=== PATIENT | female | born 1955 | race Hispanic/Latino ===

== ENCOUNTER 2017-10-15 18:19 | Observation (INO) | payer BC, OTHER ==
[~2017-10-15] VITALS: Ht 162.6 cm; Wt 72.6 kg
[~2017-10-15 18:19] MED LIST: LEVOTHYROXINE50 MCG PO; MOTRIN800 MG PO
[2017-10-15] MEDS ORDERED: ASPIRIN 81 MG CHEW TAB PO ONE (20:00)
[2017-10-15] MEDS ORDERED: ASPIRIN 325 MG TAB PO ONE (20:00)
[2017-10-15 20:15] LABS: BASOPHILS # (AUTO) 0.1 (0.0-0.1); BASOPHILS % 1.3 % (0.0-1.0); EOSINOPHILS # (AUTO) 0.4 (0.0-0.4); EOSINOPHILS % 5.8 % (0.0-6.0); HEMATOCRIT 41.9 % (34.2-44.1); HEMOGLOBIN 14.4 g/dL (12.0-16.0); LYMPHOCYTES # (AUTO) 3.5 (1.0-3.2); LYMPHOCYTES % 48.3 % (18.0-39.1); MEAN CORPUSCULAR HGB CONC 34.4 g/dL (31-35); MEAN CORPUSCULAR VOLUME 84.3 fL (81-99); MONOCYTES # (AUTO) 0.5 (0.2-0.8); MONOCYTES % 7.2 % (4.4-11.3); NEUTROPHILS # (AUTO) 2.7 (2.1-6.9); NEUTROPHILS % 37.3 % (38.7-80.0); PLATELET COUNT 264 x10e3/uL (140-360); RED BLOOD COUNT 4.97 x10e6/uL (3.6-5.1); RED CELL DISTRIBUTION WIDTH 12.3 % (11.7-14.4)
[2017-10-15 20:27] LABS: ALANINE AMINOTRANSFERASE 31 IU/L (0-55); ALKALINE PHOSPHATASE 92 IU/L (40-150); ANION GAP 16.3 mmol/L (8-16); BLOOD UREA NITROGEN 19 mg/dL (7-26); BUN/CREATININE RATIO 18 (6-25); CALCIUM 9.8 mg/dL (8.4-10.2); CARBON DIOXIDE 25 mmol/L (22-29); CHLORIDE 100 mmol/L (98-107); CREATINE KINASE 234 IU/L (29-168); CREATININE, SERUM 1.05 mg/dL (0.57-1.11); EST GLOMERULAR FILTRATION RATE 53 ML/MIN (60-); GLUCOSE 174 mg/dL (74-118); POTASSIUM 4.3 mmol/L (3.5-5.1); SODIUM 137 mmol/L (136-145)
--- NOTE | 2017-10-15 21:52 | Diagnostic Imaging Report ---
EXAMINATION: CHEST SINGLE (NOT PORTABLE) INDICATION: Hepatic, chest pressure COMPARISON: None FINDINGS: TUBES and LINES: None. LUNGS: Lungs are not well inflated. There are bibasilar atelectasis. There is no evidence of pneumonia or pulmonary edema. PLEURA: No pleural effusion or pneumothorax. HEART AND MEDIASTINUM: The cardiomediastinal silhouette is unremarkable. BONES AND SOFT TISSUES: No acute osseous lesion. Postsurgical changes in the right shoulder compatible with prior rotator cuff repair. Additional metallic densities overlying the acromiohumeral joint are indeterminate. Soft tissues are unremarkable. UPPER ABDOMEN: No free air under the diaphragm. IMPRESSION: No acute thoracic abnormality. Signed by: Dr. Jose Elias M.D. on 10/15/2017 9:49 PM
--- NOTE | 2017-10-15 22:33 | Diagnostic Imaging Report ---
EXAMINATION: Head CT without contrast. HISTORY:Headache and dizziness. COMPARISON:CT brain from 06/14/2014. TECHNIQUE: Multidetector axial images were obtained from the foramen magnum to the vertex without contrast. The images were reconstructed using brain and bone algorithms. Thin section brain images were reformatted into coronal and sagittal planes. Intravenous contrast: None IMAGE QUALITY: Acceptable. FINDINGS: Skull/scalp: No abnormality. Parenchyma: No abnormal density. No acute hemorrhage, mass or acute major vascular territorial infarct. Arteries: Nonspecific asymmetric hyperdense appearance of right vertebral artery (image 4, series 2). Dural sinuses: No abnormal density suggestive of thrombosis. Ventricles: No hydrocephalus or displacement. Extra-axial spaces: No abnormal density. Brain volume: Normal for age. Craniocervical junction: No mass, Chiari malformation, or basilar invagination. Sella: No mass. Paranasal/mastoid sinuses: Imaged portions unremarkable. IMPRESSION: No acute intracranial abnormality, particularly no acute hemorrhage, mass or acute major vascular territorial infarct. Nonspecific asymmetric hyperdense appearance of right vertebral artery the differential possibility includes vertebral artery thrombus, tortuous vessel or an artifact. If there is clinical concern follow-up with CTA of the head/neck for further evaluation. Findings were discussed with Nurse Padgett by phone at 10:25 PM on 10/15/2017. Signed by: Dr. Linda Jacobs M.D. on 10/15/2017 10:30 PM
[2017-10-15] MEDS ORDERED: SODIUM CHLORIDE 0.9% 500ML 500 ML IV ONE ×2 (22:45)
--- NOTE | 2017-10-16 01:01 | Diagnostic Imaging Report ---
EXAMINATION: CT angio of the neck and head with contrast. HISTORY:Headache and dizziness. COMPARISON:No direct comparison, compared with CT brain from 10/15/2017. TECHNIQUE: Multidetector helical axial images were acquired through the neck and head during infusion of iodinated contrast material. Images were reviewed in multiplanar and 3-dimensional format. Contrast: 100 mL of Isovue-370 . FINDINGS: NECK: If carotid bulb stenosis is present, stenosis is measured with respect to the distal extracranial internal carotid artery. AORTIC ARCH: Common origin of right brachiocephalic trunk and left common carotid artery. Direct origin of left vertebral artery from the aortic arch Common carotid arteries: Patent, no abnormality Cervical carotid bulb: Right: Punctate nonstenotic hard atherosclerotic plaque. Left :Nonstenotic mixed focal atherosclerotic plaque. Internal carotid arteries: Right: Patent. Left: Nonstenotic focal hard atherosclerotic plaque in the proximal left internal carotid artery just above the bifurcation. Vertebral arteries: Patent, no abnormality. HEAD: Internal carotid arteries: Mild atherosclerotic plaque in bilateral carotid siphon, otherwise patent, no abnormality in bilateral M1 and A1 segments. Vertebral arteries: Tortuous course of dominant right vertebral artery. Basilar artery: Patent. Posterior cerebral arteries: Patent. Anatomical variants: Anterior communicating artery :Present Posterior communicating arteries: Patent on right, not well visualized on left. Vertebral arteries: Dominant right. IMPRESSION: 1. Tortuous course of V4 segment of dominant right vertebral artery. No vertebral artery thrombus. 2. Mild atherosclerotic plaque in bilateral carotid siphon. Nonstenotic focal atherosclerotic plaque in bilateral carotid bulb and proximal left internal carotid artery. Signed by: Dr. Linda Jacobs M.D. on 10/16/2017 12:58 AM
[2017-10-16] MEDS ORDERED: KETOROLAC TROMETHAMINE 30 MG/ML VIAL IV STA (01:34)
[2017-10-16] MEDS ORDERED: ASPIRIN 81 MG CHEW TAB ONE (02:00)
[2017-10-16] MEDS ORDERED: MORPHINE SULFATE 2 MG/ML SYR IV PRN (02:30)
[2017-10-16] MEDS ORDERED: DEXTROSE 50% SYRINGE 50 ML IV PRN (02:30)
[2017-10-16] MEDS ORDERED: ONDANSETRON HCL INJ 2 MG/ML VIAL IV PRN (02:30)
[2017-10-16] MEDS ORDERED: NITROGLYCERIN 0.4 MG SUBL SL PRN (02:30)
--- OUTSIDE RECORDS SUMMARY | 2017-10-16 02:36 | XMS REPORT ---
[facility] Address Unknown Phone Unavailable Care Team Providers Care Distribution Associate Name Role Phone ZACHARY ANTHONY Unavailable Unavailable Problems This patient has no known problems. Allergies, Adverse Reactions, Alerts This patient has no known allergies or adverse reactions. Medications This patient has no known medications. Results Test Description Test Time Test Comments Text Results Atomic Results Result Comments CTA BRAIN [place] [id number] Patient Name: JOHN HO MR # : [id number] : 1955 Age/Sex: 62/F Req #: [id number] Adm Physician: Ordered by: ZACHARY ANTHONY MD Report #: [id number] Location: ER Room/Bed: Procedure: [id number] CT/ CTA BRAIN Exam Date: 10/15/17 Exam Time: 2351 REPORT STATUS: Signed EXAMINATION: CT angio of the neck and head with contrast. HISTORY:Headache and dizziness. COMPARISON:No direct comparison, compared with CT brain from 10/15/2017. TECHNIQUE: Multidetector helical axial images were acquired through the neck and head during infusion of iodinated contrast material. Images were reviewed in multiplanar and 3-dimensional format. Contrast: 100 mL of Isovue-370 . FINDINGS: NECK: If carotid bulb stenosis is present, stenosis is measured with respect to the distal extracranial internal carotid artery. AORTIC ARCH: Common origin of right brachiocephalic trunk and left common carotid artery. Direct origin of left vertebral artery from the aortic arch Common carotid arteries: Patent, no abnormality Cervical carotid bulb : Right: Punctate nonstenotic hard atherosclerotic plaque. Left : Nonstenotic mixed focal atherosclerotic plaque. Internal carotid arteries: Right: Patent. Left: Nonstenotic focal hard atherosclerotic plaque in the proximal left internal carotid artery just above the bifurcation. Vertebral arteries: Patent, no abnormality. HEAD: Internal carotid arteries: Mild atherosclerotic plaque in bilateral carotid siphon, otherwise patent, no abnormality in bilateral M1 and A1 segments. Vertebral arteries: Tortuous course of dominant right vertebral artery. Basilar artery: Patent. Posterior cerebral arteries: Patent. Anatomical variants: Anterior communicating artery :Present Posterior communicating arteries: Patent on right, not well visualized on left. Vertebral arteries: Dominant right. IMPRESSION: 1. Tortuous course of V4 segment of dominant right vertebral artery. No vertebral artery thrombus. 2. Mild atherosclerotic plaque in bilateral carotid siphon. Nonstenotic focal atherosclerotic plaque in bilateral carotid bulb and proximal left internal carotid artery. Signed by: Dr. Linda Jacobs M.D. on 10/16/2017 12:58 AM Dictated By: LINDA JACOBS MD Transcribed By: LIN on 10/16/1757 COPY TO: ZACHARY ANTHONY MD CT BRAIN WO [place] [address] Patient Name: JOHN HO MR #: [id number] : 1955 Age/Sex: 62/F Req #: [id number] Adm Physician: Ordered by: ZACHARY ANTHONY MD Report #: [id number] Location: Room/Bed: Procedure: [id number] CT/CT BRAIN WO Exam Date: 10/15/17 Exam Time: 2144 REPORT STATUS: Signed EXAMINATION: Head CT without contrast. HISTORY:Headache and dizziness. COMPARISON:CT brain from 06/14/2014. TECHNIQUE: Multidetector axial images were obtained from the foramen magnum to the vertex without contrast. The images were reconstructed using brain and bone algorithms. Thin section brain images were reformatted into coronal and sagittal planes. Intravenous contrast: None IMAGE QUALITY: Acceptable. FINDINGS: Skull/scalp: No abnormality. Parenchyma: No abnormal density. No acute hemorrhage, mass or acute major vascular territorial infarct. Arteries: Nonspecific asymmetric hyperdense appearance of right vertebral artery (image 4, series 2) . Dural sinuses: No abnormal density suggestive of thrombosis. Ventricles: No hydrocephalus or displacement. Extra-axial spaces: No abnormal density. Brain volume: Normal for age. Craniocervical junction: No mass, Chiari malformation, or basilar invagination. Sella: No mass. Paranasal/mastoid sinuses: Imaged portions unremarkable. IMPRESSION: No acute intracranial abnormality, particularly no acute hemorrhage, mass or acute major vascular territorial infarct. Nonspecific asymmetric hyperdense appearance of right vertebral artery the differential possibility includes vertebral artery thrombus, tortuous vessel or an artifact. If there is clinical concern follow-up with CTA of the head/ neck for further evaluation. Findings were discussed with Nurse Padgett by phone at 10:25 PM on 10/15/2017. Signed by: Dr. Linda Jacobs M.D. on 10:30 PM Dictated By: LINDA JACOBS MD 29 Transcribed By: LIN on 10/15/172229 COPY TO: ZACHARY ANTHONY MD CHEST SINGLE (NOT PORTABLE) [place] [address] Patient Name: JOHN HO MR #: [id number] : 1955 Age/Sex: 62/F Req #: [id number] Adm Physician: Ordered by: NEO SALAS LOAN REPRESENTATIVE Report #: [id number] Location: ER Room/Bed: Procedure: [id number] DX/CHEST SINGLE (NOT PORTABLE) Exam Date: 10/15/17 Exam Time: 2028 REPORT STATUS: Signed EXAMINATION : CHEST SINGLE (NOT PORTABLE) INDICATION: Hepatic, chest pressure COMPARISON: None FINDINGS: TUBES and LINES: None. LUNGS: Lungs are not well inflated. There are bibasilar atelectasis. There is no evidence of pneumonia or pulmonary edema. PLEURA: No pleural effusion or pneumothorax. HEART AND MEDIASTINUM: The cardiomediastinal silhouette is unremarkable. BONES AND SOFT TISSUES: No acute osseous lesion. Postsurgical changes in the right shoulder compatible with prior rotator cuff repair. Additional metallic densities overlying the acromiohumeral joint are indeterminate. Soft tissues are unremarkable. UPPER ABDOMEN: No free air under the diaphragm. IMPRESSION: No acute thoracic abnormality. Signed by: Dr. Jose Elias M.D. on 10/15/2017 9:49 PM Dictated By: JOSE RODRIGUEZ MD 48 Transcribed By: LIN on 10/15/172148 COPY TO: NEO SALAS LOAN REPRESENTATIVE CTA NECK [place] [address] Patient Name: JOHN HO MR # : [id number] : 1955 Age/Sex: 62/F Req #: [id number] Adm Physician: Ordered by: ZACHARY ANTHONY MD Report #: [id number] Location: ER Room/Bed: Procedure: [id number] CT/ CTA NECK Exam Date: 10/15/17 Exam Time: 2351 REPORT STATUS: Signed EXAMINATION: CT angio of the neck and head with contrast. HISTORY:Headache and dizziness. COMPARISON:No direct comparison, compared with CT brain from 10/15/2017. TECHNIQUE: Multidetector helical axial images were acquired through the neck and head during infusion of iodinated contrast material. Images were reviewed in multiplanar and 3-dimensional format. Contrast: 100 mL of Isovue-370 . FINDINGS: NECK: If carotid bulb stenosis is present, stenosis is measured with respect to the distal extracranial internal carotid artery. AORTIC ARCH: Common origin of right brachiocephalic trunk and left common carotid artery. Direct origin of left vertebral artery from the aortic arch Common carotid arteries: Patent, no abnormality Cervical carotid bulb : Right: Punctate nonstenotic hard atherosclerotic plaque. Left : Nonstenotic mixed focal atherosclerotic plaque. Internal carotid arteries: Right: Patent. Left: Nonstenotic focal hard atherosclerotic plaque in the proximal left internal carotid artery just above the bifurcation. Vertebral arteries: Patent, no abnormality. HEAD: Internal carotid arteries: Mild atherosclerotic plaque in bilateral carotid siphon, otherwise patent, no abnormality in bilateral M1 and A1 segments. Vertebral arteries: Tortuous course of dominant right vertebral artery. Basilar artery: Patent. Posterior cerebral arteries: Patent. Anatomical variants: Anterior communicating artery :Present Posterior communicating arteries: Patent on right, not well visualized on left. Vertebral arteries: Dominant right.
[2017-10-16 04:22] LABS: CREATINE KINASE MB 3.2 ng/mL (0-5.0)
[2017-10-16] MEDS ORDERED: SODIUM CHLORIDE 0.9% 50ML 50 ML ONE (05:19)
[2017-10-16] MEDS ORDERED: IOPAMIDOL 370 MG/ML 200 ML INFUS..BTL INJ ONE (05:20)
[2017-10-16] MEDS: INSULIN REGULAR, HUMAN 100 UNIT/1 ML 3ML VIAL SQ SCH ×2 (07:00→12:39)
[2017-10-16] MEDS ORDERED: ASPIRIN 81 MG ENTERIC COATED PO SCH (09:00)
[2017-10-16 13:06] LABS: CREATINE KINASE MB 2.5 ng/mL (0-5.0)
[2017-10-16 13:14] VITALS: BP 130/16
[2017-10-16] MEDS ORDERED: IBUPROFEN 600 MG PO PRN (13:15)
--- NOTE | 2017-10-16 13:29 | Consultation ---
DATE OF CONSULTATION: October 16, 2017 CARDIAC CONSULTATION REASON FOR CONSULTATION: Chest pain. HISTORY: A 62-year-old lady who is known with hypertension, diabetes mellitus, hypothyroidism. Her diabetes is 3 years ago. It is controlled with metformin. She take another tablet for cholesterol, and she takes Synthroid. Regardless, the reason for her presentation to this institution was severe headache involving half of the head. The pain is very severe. With this severe headache, patient complained of vague chest pain. Cardiac consultation is obtained. I visited with the patient and still having severe headache. She denied having any prior angina. Her chest pain is more of not feeling well because of her headache. She denied having any typical anginal chest pain, or any other type of chest pain can be put together. It is just dullness feeling. REVIEW OF SYSTEMS: HEENT: No vision problem. Has severe headache as described above. PULMONARY: No cough. No hemoptysis. CARDIAC: No angina. No orthopnea. No paroxysmal nocturnal dyspnea. GI: No hematemesis. No melena. : No hematuria. No dysuria. NEUROMUSCULAR: Only the headache. OTHERS: No major complaint in the rest of her systems. HOME MEDICATIONS: Metformin. Cholesterol tablet, she cannot recall the name. Hypothyroidism. ALLERGIES: NONE. PAST MEDICAL HISTORY: 1. Hypertension. 2. Diabetes mellitus for 3 years. 3. Hypercholesterolemia. 4. Appendectomy. 5. Two shoulder surgeries. FAMILY HISTORY: No family history of premature coronary artery disease. PHYSICAL EXAMINATION: VITALS: Height of 5 feet 1 inch, weight of 173 pounds. Blood pressure 140/80. Pulses are equal in both arms, no delay between pulses. Heart rate of 70. Respiratory rate of 18. HEENT: Pupils are reactive. NECK: No elevation of jugular venous pulsation. No bruit. CHEST: Clear to auscultation and percussion. HEART: PMI 5th left intercostal space. Normal 1st and 2nd heart sounds. ABDOMEN: Soft with good bowel sounds. EXTREMITIES: No cyanosis. No clubbing. No edema. NEUROLOGIC: Nonfocal. IMPRESSION AND PLAN: 1. Severe headache. Questionable etiology. 2. Vague chest pain with that headache. 3. Hypertension. 4. Diabetes mellitus. RECOMMENDATION: Observation, treating the headache. Patient and her daughter at bedside were advised at one stage she should have stress test when she is able to do that. She is definitely unable to do any of that because of her severe headache. Job#: [id number] EV
[2017-10-16] MEDS ORDERED: IBUPROFEN 600 MG TAB PO PRN (13:30)
[2017-10-16 13:45] VITALS: BP 130/16
[2017-10-16] MEDS ORDERED: METFORMIN HCL500 MG PO (13:54)
[2017-10-16] MEDS ORDERED: ATORVASTATIN CA10 MG PO (13:54)
[2017-10-16] MEDS ORDERED: LOSARTAN POTASS25 MG PO (13:54)
[2017-10-16 14:05] VITALS: BP 130/16
--- NOTE | 2017-10-16 14:50 | History and Physical ---
HISTORY OF PRESENT ILLNESS: This is a 62-year-old female with past medical history positive for hypertension and diabetes. Patient came here with chest pain and severe headaches. CT angiogram of the head showed no significant abnormalities. Cardiac enzymes were negative. EKG was unremarkable. Dr. Kingston recommended for her to be discharged home. REVIEW OF SYSTEMS CARDIOVASCULAR: She had an episode of chest pain which has resolved. RESPIRATORY: No shortness of breath. No cough. GASTROINTESTINAL: No nausea, vomiting or diarrhea. GENITOURINARY: No frequency. No dysuria. NEUROLOGIC: Headache in the back of the neck. ALLERGIES: SHE IS NOT ALLERGIC TO ANYTHING. SOCIAL HISTORY: She does not smoke. She does not drink. PAST MEDICAL HISTORY: Hypertension and diabetes. PHYSICAL EXAMINATION HEART: Regular rhythm. Normal S1, S2 sounds. LUNGS: Clear bilaterally. ABDOMEN: Soft. EXTREMITIES: No evidence of cyanosis, edema or trauma. CT angiogram of the neck and head showed no significant abnormalities. On the blood work, we have BMP with sodium 137, potassium 4.3, chloride 100, CO2 25, BUN 19, creatinine 1.05, glucose 174. On the CBC, white blood count 7.19, hemoglobin dropped to 14.4, hematocrit 41.9, platelet count 264,000. AST 21, ALT 31. Total bilirubin 0.5, alkaline phosphatase 92. The EKG showed normal sinus rhythm, no significant abnormalities. FINAL IMPRESSION 1. Atypical episode of chest pain. 2. Hypertension. 3. Diabetes mellitus, type 2. 4. Tension headaches. PLAN OF TREATMENT: Patient is going to be discharged on her usual home medications plus aspirin 81 mg daily. Continue diabetic diet. We are going to also prescribe Fioricet 1 tablet every 4 hours as needed for headaches. Patient has been discharged by Dr. Kingston, coater brake linings, already. Follow up with primary care physician in a week. Job#: [id number]
--- NOTE | 2017-10-16 15:14 | Discharge Summary ---
A 62-year-old female who has a past medical history positive for hypertension and diabetes came here with chest pain and severe headaches. CT and angiogram of the head showed no significant abnormalities. EKG came back showing no significant abnormalities either. Cardiac enzymes were negative. Patient was seen by Dr. Kingston, camera mechanic. The patient has been discharged by Dr. Kingston and myself also. PHYSICAL EXAMINATION HEART: Shows regular rhythm. Normal S1 and S2 sounds. LUNGS: Clear bilaterally. ABDOMEN: Soft. EXTREMITIES: Show no evidence of cyanosis or trauma. VITAL SIGNS: Blood pressure is 130/54, temperature 98 degrees, heart rate 74 per minute, respiratory rate 18 per minute, oxygen saturation 96%. I already described the blood work. Patient is going to be going home today with instructions to continue the current medication regimen, which includes: 1. Aspirin 81 mg daily. 2. She is also taking levothyroxine 50 mcg daily. 3. Continue monitoring the blood sugar at home. 4. She is going to continue Lipitor 10 mg daily. 5. Losartan 25 mg daily. 6. Metformin 500 mg twice a day. 7. As part of her home medications also, she is going to take Fioricet 1 tablet every 4 hours as needed for headaches. Follow up with me in a couple of weeks. ENIRKE LAZO MD Job#: [id number] RI
[2017-10-16] MEDS ORDERED: METFORMIN HCL 500 MG TAB PO SCH (17:00)
[2017-10-16] MEDS ORDERED: ATORVASTATIN 10 MG TAB PO SCH (21:00)
[2017-10-17] MEDS ORDERED: LOSARTAN POTASSIUM 25 MG TAB PO SCH (09:00)
[2017-10-17] MEDS ORDERED: LEVOTHYROXINE SODIUM 50 MCG TAB PO SCH (09:00)
== END 2017-10-16 15:03 | disposition home or self-care (01) ==
LOC: ER 18:19 → ERHOLD 10-16 02:33 → IMCU 10-16 12:55
PROVIDERS: ADMIT Internal Medicine; ATTEND Internal Medicine
DX: R07.89 Other chest pain (principal); G44.209 Tension-type headache, unspecified, not intractable; I10 Essential (primary) hypertension; E11.9 Type 2 diabetes mellitus without complications; E03.9 Hypothyroidism, unspecified
CPT/HCPCS: 36415 ×2; 70450; 70496; 70498; 71045; 80053; 82550 ×2; 82553 ×2; 83880; 84484 ×2; 85025; 85730; 93005; 99285; G0378; J2270; J2405; J7040; Q9967

== ENCOUNTER 2021-11-15 12:28 | Observation (INO) | payer MEDICARE, OTHER ==
[~2021-11-15] VITALS: Ht 154.9 cm; Wt 70.4 kg
[~2021-11-15 12:28] MED LIST changes: +ATORVASTATIN CA10 MG PO; +LOSARTAN POTASS25 MG PO; +METFORMIN HCL500 MG PO
[2021-11-15] MEDS ORDERED: ONDANSETRON HCL INJ 2MG/ML 2ML 2 MG/ML VIAL IV STA (12:44)
[2021-11-15] MEDS ORDERED: SODIUM CHLORIDE 0.9% 1000ML 500 ML IV STA (12:44)
[2021-11-15] MEDS ORDERED: MECLIZINE HCL 12.5 MG TAB PO ONE (13:00)
[2021-11-15 13:27] LABS: BASOPHILS # (AUTO) 0.1 (0.0-0.1); BASOPHILS % 0.8 % (0.0-1.0); EOSINOPHILS # (AUTO) 0.2 (0.0-0.4); EOSINOPHILS % 2.9 % (0.0-6.0); HEMATOCRIT 35.9 % (34.2-44.1); LYMPHOCYTES # (AUTO) 3.4 (1.0-3.2); LYMPHOCYTES % 46.9 % (18.0-39.1); MEAN CORPUSCULAR HEMOGLOBIN 28.8 pg (28-32); MEAN CORPUSCULAR HGB CONC 33.4 g/dL (31-35); MEAN CORPUSCULAR VOLUME 86.1 fL (81-99); MONOCYTES # (AUTO) 0.5 (0.2-0.8); MONOCYTES % 6.8 % (4.4-11.3); NEUTROPHILS # (AUTO) 3.1 (2.1-6.9); NEUTROPHILS % 41.8 % (38.7-80.0); PLATELET COUNT 308 x10e3/uL (140-360); RED BLOOD COUNT 4.17 x10e6/uL (3.6-5.1); RED CELL DISTRIBUTION WIDTH 13.2 % (11.7-14.4)
[2021-11-15 13:37] LABS: INR 0.97; PARTIAL THROMBOPLASTIN TIME 22.6 seconds (23.8-35.5); PROTHROMBIN TIME 13.8 seconds (11.9-14.5)
[2021-11-15 13:43] LABS: CLARITY,URINE CLEAR (CLEAR); COLOR,URINE YELLOW (YELLOW); KETONES,URINE NEGATIVE (NEGATIVE); LEUKOCYTE ESTERASE ,URINE NEGATIVE (NEGATIVE); NITRITE,URINE NEGATIVE (NEGATIVE); PROTEIN,URINE DIPSTICK NEGATIVE (NEGATIVE); URINE UROBILINOGEN 0.2 mg/dL (0.2 - 1)
[2021-11-15 13:46] LABS: ALBUMIN 4.1 g/dL (3.5-5.0); ALBUMIN/GLOBULIN RATIO 1.1 (0.8-2.0); ANION GAP 12.7 mmol/L (8-16); CALCIUM 9.3 mg/dL (8.4-10.2); CREATININE, SERUM 0.82 mg/dL (0.57-1.11); POTASSIUM 3.7 mmol/L (3.5-5.1)
[2021-11-15 13:52] LABS: CREATINE KINASE MB 3.7 ng/mL (0-5.0)
[2021-11-15 13:57] LABS: BACTERIA,URINE RARE /HPF; EPITHELIAL CELLS,URINE FEW /LPF; RBC,URINE 0-5 /HPF (0-5); WBC,URINE (MAN) 0-5 /HPF (0-5)
[2021-11-15] MEDS ORDERED: ASPIRIN 81 MG CHEW TAB PO ONE (16:00)
[2021-11-15] MEDS ORDERED: ONDANSETRON HCL INJ 2MG/ML 2ML 2 MG/ML VIAL IV PRN (16:00)
[2021-11-15] MEDS: SODIUM CHLORIDE 0.9% 1000ML 1,000 ML IV SCH (17:04)
[2021-11-16] VITALS (7 sets, daily range): BP systolic 105–117; BP diastolic 58–77
[2021-11-16] MEDS: SODIUM CHLORIDE 0.9% 1000ML 1,000 ML IV SCH ×2 (00:56→09:02)
[2021-11-16 02:14] LABS: CREATINE KINASE MB 2.6 ng/mL (0-5.0)
[2021-11-16 06:13] LABS: BASOPHILS # (AUTO) 0.1 (0.0-0.1); EOSINOPHILS # (AUTO) 0.3 (0.0-0.4); EOSINOPHILS % 4.6 % (0.0-6.0); HEMATOCRIT 33.8 % (34.2-44.1); LYMPHOCYTES # (AUTO) 2.4 (1.0-3.2); MEAN CORPUSCULAR HEMOGLOBIN 28.7 pg (28-32); MEAN CORPUSCULAR HGB CONC 32.5 g/dL (31-35); MEAN CORPUSCULAR VOLUME 88.3 fL (81-99); MONOCYTES # (AUTO) 0.5 (0.2-0.8); MONOCYTES % 8.3 % (4.4-11.3); NEUTROPHILS # (AUTO) 2.7 (2.1-6.9); NEUTROPHILS % 45.6 % (38.7-80.0); PLATELET COUNT 268 x10e3/uL (140-360); RED BLOOD COUNT 3.83 x10e6/uL (3.6-5.1); RED CELL DISTRIBUTION WIDTH 13.4 % (11.7-14.4)
[2021-11-16 06:35] LABS: ALBUMIN 3.4 g/dL (3.5-5.0); ALBUMIN/GLOBULIN RATIO 1.1 (0.8-2.0); ANION GAP 8.2 mmol/L (8-16); CALCIUM 8.5 mg/dL (8.4-10.2); CREATININE, SERUM 0.79 mg/dL (0.57-1.11); POTASSIUM 4.2 mmol/L (3.5-5.1)
[2021-11-16] MEDS ORDERED: ASPIRIN CHEW81 MG PO (08:05)
[2021-11-16] MEDS ORDERED: GLIPIZIDE5 MG PO (08:05)
[2021-11-16] MEDS ORDERED: ASPIRIN 81 MG ENTERIC COATED PO SCH (09:00)
[2021-11-16 15:20] LABS: CREATINE KINASE MB 1.8 ng/mL (0-5.0)
[2021-11-16] MEDS ORDERED: METFORMIN HCL 500 MG TAB PO SCH (17:00)
[2021-11-16] MEDS ORDERED: ATORVASTATIN 10 MG TAB PO SCH (21:00)
[2021-11-17] MEDS ORDERED: LEVOTHYROXINE SODIUM 50 MCG TAB PO SCH (06:00)
[2021-11-17] MEDS ORDERED: GLIPIZIDE 5 MG TAB PO SCH (09:00)
[2021-11-17] MEDS ORDERED: ASPIRIN 81 MG CHEW TAB PO SCH (09:00)
== END 2021-11-16 15:59 | disposition home or self-care (01) ==
LOC: ER 12:38 → INTOOBSV 15:54 → ERHOLD 15:54 → MED/SURG3 23:54
PROVIDERS: ADMIT Internal Medicine; ATTEND Internal Medicine
DX: H81.10 Benign paroxysmal vertigo, unspecified ear (principal); E11.9 Type 2 diabetes mellitus without complications; I10 Essential (primary) hypertension; I25.10 Atherosclerotic heart disease of native coronary artery without angina pectoris; E78.00 Pure hypercholesterolemia, unspecified; R00.1 Bradycardia, unspecified; E03.9 Hypothyroidism, unspecified; Z20.822 Contact with and (suspected) exposure to COVID-19; Z79.82 Long term (current) use of aspirin; Z79.84 Long term (current) use of oral hypoglycemic drugs
CPT/HCPCS: 36415; 70450; 70551; 71045 ×2; 80053 ×2; 81001; 82550 ×2; 82553 ×2; 82948; 83880; 84484 ×2; 85025 ×2; 85610; 85730; 93005; 93306; 93880; 94799 ×2; 99284; G0378 ×2; J2405; J7030 ×2; J8597; U0002

== ENCOUNTER 2023-12-22 16:04 | Emergency (ER) | payer MEDICARE, OTHER ==
[~2023-12-22] VITALS: Ht 154.9 cm; Wt 70.3 kg
[~2023-12-22 16:04] MED LIST changes: +ASPIRIN CHEW81 MG PO; +GLIPIZIDE5 MG PO
[2023-12-22 16:15] VITALS: O2SAT 98
[2023-12-22] MEDS ORDERED: GLIPIZIDE10 MG PO (16:49)
[2023-12-22] MEDS ORDERED: LOSARTAN POTAS100 MG PO (16:49)
[2023-12-22] MEDS ORDERED: METFORMIN HCL1000 MG PO (16:49)
[2023-12-22] MEDS ORDERED: CLOPIDOGREL75 MG PO (16:49)
[2023-12-22 16:50] LABS: BASOPHILS % 0.4 % (0.0-1.0); EOSINOPHILS # (AUTO) 0.2 (0.0-0.4); EOSINOPHILS % 2.7 % (0.0-6.0); HEMATOCRIT 35.6 % (34.2-44.1); HEMOGLOBIN 12.1 g/dL (12.0-16.0); LYMPHOCYTES % 17.7 % (18.0-39.1); MEAN CORPUSCULAR HEMOGLOBIN 28.9 pg (28-32); MEAN CORPUSCULAR VOLUME 85.2 fL (81-99); MONOCYTES # (AUTO) 0.4 (0.2-0.8); MONOCYTES % 6.5 % (4.4-11.3); NEUTROPHILS # (AUTO) 4.1 (2.1-6.9); NEUTROPHILS % 72.5 % (38.7-80.0); PLATELET COUNT 259 x10e3/uL (140-360); RED BLOOD COUNT 4.18 x10e6/uL (3.6-5.1); RED CELL DISTRIBUTION WIDTH 13.3 % (11.7-14.4); WHITE BLOOD COUNT 5.66 x10e3/uL (4.8-10.8)
[2023-12-22 17:12] LABS: ALANINE AMINOTRANSFERASE 19 IU/L (0-55); ALBUMIN 3.8 g/dL (3.5-5.0); ALKALINE PHOSPHATASE 80 IU/L (40-150); BILIRUBIN,TOTAL 0.7 mg/dL (0.2-1.2); BLOOD UREA NITROGEN 12 mg/dL (7-26); BUN/CREATININE RATIO 15 (6-25); CALCIUM 9.1 mg/dL (8.4-10.2); CARBON DIOXIDE 18 mmol/L (22-29); CHLORIDE 103 mmol/L (98-107); CREATINE KINASE 164 IU/L (29-168); CREATININE, SERUM 0.78 mg/dL (0.57-1.11); EST GLOMERULAR FILTRATION RATE 83 ML/MIN (>=60); GLUCOSE 120 mg/dL (74-118); SODIUM 133 mmol/L (136-145); TOTAL PROTEIN 7.5 g/dL (6.5-8.1)
[2023-12-22 17:19] LABS: TROPONIN I < 0.001 ng/mL (0-0.300)
[2023-12-22] MEDS ORDERED: AUGMENTIN 500-1 EACH PO (17:54)
[2023-12-22 18:31] LABS: BILIRUBIN,URINE NEGATIVE (NEGATIVE); CLARITY,URINE SL CLOUDY (CLEAR); COLOR,URINE YELLOW (YELLOW); GLUCOSE, URINE NEGATIVE (NEGATIVE); KETONES,URINE NEGATIVE (NEGATIVE); LEUKOCYTE ESTERASE ,URINE TRACE (NEGATIVE); NITRITE,URINE NEGATIVE (NEGATIVE); PH,URINE 5.5 (5 - 7); PROTEIN,URINE DIPSTICK NEGATIVE (NEGATIVE); URINE UROBILINOGEN 0.2 mg/dL (0.2 - 1)
== END 2023-12-22 18:18 | disposition home or self-care (01) ==
LOC: ER 16:28
DX: R06.02 Shortness of breath (principal); R07.9 Chest pain, unspecified; H92.01 Otalgia, right ear; J02.9 Acute pharyngitis, unspecified; X50.0XXA Overexertion from strenuous movement or load, initial encounter; Y92.89 Other specified places as the place of occurrence of the external cause; Z11.52 Encounter for screening for COVID-19
CPT/HCPCS: 36415; 71045; 80053; 81001; 82550; 83518; 83690; 83880; 84484; 85025; 87070; 99284; U0002; 93005

== ENCOUNTER → 2024-03-10 | Outpatient (REF) | payer MEDICARE ==
[~2024-03-10] MED LIST changes: +AUGMENTIN 500-1 EACH PO; +CLOPIDOGREL75 MG PO; +DIATRIZOATE MEGL/DIATRIZOA SOD 30 ML BTL PO ONE; +GLIPIZIDE10 MG PO; +IOPAMIDOL 370 MG/ML 100 ML INFUS..BTL INJ ONE; +LOSARTAN POTAS100 MG PO; +METFORMIN HCL1000 MG PO
[2024-03-10 16:51] LABS: CREATININE, SERUM 0.87 mg/dL (0.57-1.11)
== END ==
LOC: CT 15:56
PROVIDERS: ATTEND Internal Medicine
DX: R10.32 Left lower quadrant pain (principal)
CPT/HCPCS: 36415; 74177; 82565; 84520; Q9963; Q9967

== ENCOUNTER → 2025-06-02 | Outpatient (REF) | payer MEDICARE ==
[~2025-06-02] MED LIST changes: -DIATRIZOATE MEGL/DIATRIZOA SOD 30 ML BTL PO ONE
[2025-06-02 09:09] LABS: EST GLOMERULAR FILTRATION RATE 91.0 ML/MIN (>=60)
== END ==
LOC: CT 07:46
PROVIDERS: ATTEND Internal Medicine
DX: R10.32 Left lower quadrant pain (principal)
CPT/HCPCS: 36415; 74177; 82565; 84520; Q9967